=== PATIENT | female | born 1980 | race Caucasian/White ===

== ENCOUNTER → 2016-11-03 | Outpatient (CLI) | payer BC ==
[~2016-11-03] MED LIST: NAPROXEN500 MG PO; NORCO 7.5-3251 EACH PO
[2016-11-03 11:50] LABS: HEMOGLOBIN 12.8 gm/dl (12.3-15.3); RED BLOOD COUNT 4.54 M/UL (4.00-5.10); WHITE BLOOD COUNT 6.1 K/UL (4.5-11.0)
== END ==
LOC: OPSV2 10:30
PROVIDERS: Obstetrics & Gynecology
DX: Z01.812 Encounter for preprocedural laboratory examination (principal); R10.2 Pelvic and perineal pain; Z88.5 Allergy status to narcotic agent
CPT/HCPCS: 36415; 81001; 85025

== ENCOUNTER → 2016-11-12 | Day surgery (SDC) | payer BC | END | disposition home or self-care (01) | LOC: OR 09:30 | PROVIDERS: Obstetrics & Gynecology | PROC: 0UT74ZZ Resection of Bilateral Fallopian Tubes, Percutaneous Endoscopic Approach (ICD-10-PCS; 2016-11-12) | PROC: 0UT24ZZ Resection of Bilateral Ovaries, Percutaneous Endoscopic Approach (ICD-10-PCS; principal; 2016-11-12 11:15) | DX: N80.1 Endometriosis of ovary (principal); I10 Essential (primary) hypertension; F17.210 Nicotine dependence, cigarettes, uncomplicated; Z88.6 Allergy status to analgesic agent; Z80.41 Family history of malignant neoplasm of ovary; Z90.49 Acquired absence of other specified parts of digestive tract; Z98.51 Tubal ligation status | CPT/HCPCS: J0690; J1100; J1885; J2250; J2270; J2405; J2710; J2795; J3010; J7120 ==